=== PATIENT | male | born 1940 | race Caucasian/White ===

== ENCOUNTER 2017-08-16 07:00 | Day surgery (SDC) | payer MEDICARE, OTHER ==
[~2017-08-16 07:00] MED LIST: LIDOCAINE 1% MPF 5 ML VIAL ONE
[2017-08-16] MEDS ORDERED: TROP 1%/CYCLOPEN 1%/PHENYL 2% DROPS ONE (11:30)
[2017-08-16] MEDS ORDERED: TOBRAMYCIN-DEXAMETH OPHTH SOL 1 DROP RIGHT_EYE ONE (12:00)
[2017-08-16] MEDS: PROPARACAINE 0.5% OPHTH SOL 15 ML BTTL ONE ×3 (12:00→12:41)
[2017-08-16] MEDS ORDERED: MIDAZOLAM INJ 2 MG/2 ML VIAL ONE (12:18)
[2017-08-16] MEDS ORDERED: PROPARACAINE 0.5% OPHTH SOL 15 ML BTTL RIGHT_EYE ONE (12:24)
[2017-08-16] MEDS ORDERED: DEXAMETHASONE 0.1% OPHTH SOL 1 DROP RIGHT_EYE ONE ×2 (12:41→13:13)
[2017-08-16] MEDS ORDERED: GENTAMICIN 0.3% OPHTH SOL 1 DROP RIGHT_EYE ONE ×2 (12:42→13:13)
[2017-08-16] MEDS ORDERED: BRIMONIDINE 0.2% OPHTH DROPS RIGHT_EYE ONE ×2 (12:42→13:13)
[2017-08-16 13:30] VITALS: BP 180/88; TEMP 98.2; O2SAT 97
== END 2017-08-16 13:56 | disposition home or self-care (01) ==
LOC: AMB 07:00
PROVIDERS: ATTEND Ophthalmology
DX: H25.11 Age-related nuclear cataract, right eye (principal)
CPT/HCPCS: 66984; J2250

== ENCOUNTER 2017-08-26 11:40 | Day surgery (SDC) | payer MEDICARE ==
[2017-08-26] MEDS ORDERED: PROPARACAINE 0.5% OPHTH SOL 15 ML BTTL LEFT_EYE ONE ×2 (13:55→15:13)
[2017-08-26] MEDS ORDERED: TOBRAMYCIN SULF 0.3 % OPHT SOL 1 DROP LEFT_EYE ONE ×2 (13:56→15:14)
[2017-08-26] MEDS ORDERED: TROP 1%/CYCLOPEN 1%/PHENYL 2% DROPS OPHTH ONE (13:57)
[2017-08-26] MEDS ORDERED: MIDAZOLAM INJ 2 MG/2 ML VIAL ONE (14:16)
[2017-08-26] MEDS ORDERED: LIDOCAINE 1% PF 2 ML AMP INJ ONE (15:13)
[2017-08-26] MEDS ORDERED: BRIMONIDINE 0.2% OPHTH DROPS LEFT_EYE ONE (15:14)
[2017-08-26] MEDS ORDERED: DEXAMETHASONE 0.1% OPHTH SOL 1 DROP LEFT_EYE ONE (15:14)
[2017-08-26 16:42] VITALS: BP 174/106; TEMP 98.1; O2SAT 98
== END 2017-08-26 17:00 | disposition home or self-care (01) ==
LOC: AMB 11:40
PROVIDERS: ATTEND Ophthalmology
DX: H25.12 Age-related nuclear cataract, left eye (principal); I10 Essential (primary) hypertension; F17.210 Nicotine dependence, cigarettes, uncomplicated; J44.9 Chronic obstructive pulmonary disease, unspecified; Z79.899 Other long term (current) drug therapy
CPT/HCPCS: 66984; J2250